=== PATIENT | female | born 1960 | race Native Hawaiian/Other Pacific Islander ===

== ENCOUNTER 2020-04-25 11:39 | Outpatient (CLI) | payer OTHER ==
[~2020-04-25 11:39] MED LIST: ALBUAER5 INH; ALBUTEROL0.083 % IN; CLON1TAB18 PO; FLUT0.05 NAS; LEVO0.0529 PO; LEVO500T PO; PRED10TA27 PO; TESSALON200 MG OR
== END 2020-04-25 21:01 | disposition home or self-care (01) ==
LOC: LABW 11:39
PROVIDERS: ATTEND Internal Medicine Gastroenterology
DX: B18.2 Chronic viral hepatitis C (principal)
CPT/HCPCS: 36415; 87522

== ENCOUNTER 2020-07-23 14:08 | Outpatient (CLI) | payer OTHER | END 2020-07-23 20:40 | disposition home or self-care (01) | LOC: RAD 14:08 | PROVIDERS: ATTEND Family Medicine | DX: R07.89 Other chest pain (principal); W19.XXXA Unspecified fall, initial encounter; R05 Cough ==

== ENCOUNTER 2020-08-06 20:10 | Emergency (ER) | payer OTHER ==
[~2020-08-06] VITALS: Ht 152.4 cm; Wt 52.6 kg
[2020-08-06 20:49] LABS: PLATELET COUNT 128 K/uL (152-353)
[2020-08-06 20:56] LABS: POTASSIUM 3.4 mmol/L (3.6-5.2)
[2020-08-06 21:08] LABS: PARTIAL THROMBOPLASTIN TIME 26.5 SECONDS (24.5-33.6)
[2020-08-06 21:47] VITALS: BP 134/62; TEMP 98.3
== END 2020-08-06 21:47 | disposition home or self-care (01) ==
LOC: ED 20:10
PROVIDERS: Hospitalist
DX: R04.0 Epistaxis (principal)
CPT/HCPCS: 36415; 80048; 85027; 85610; 85730; 99283

== ENCOUNTER 2020-08-10 10:21 | Emergency (ER) | payer OTHER ==
[~2020-08-10] VITALS: Ht 152.4 cm; Wt 52.6 kg
[2020-08-10 11:08] LABS: PLATELET COUNT 118 K/uL (152-353)
[2020-08-10 11:27] LABS: POTASSIUM 3.9 mmol/L (3.6-5.2)
[2020-08-10 11:59] LABS: PARTIAL THROMBOPLASTIN TIME 25.5 SECONDS (24.5-33.6)
[2020-08-10 13:00] VITALS: BP 114/67; TEMP 97.6
[2020-08-10] MEDS ORDERED: PANTOPRAZOLE 40MG TA PO (17:33)
[2020-08-10] MEDS ORDERED: HYDRTAB76 PO (17:34)
[2020-08-10] MEDS ORDERED: AMOXICILLIN250 M2 PO (17:35)
[2020-08-10] MEDS ORDERED: TRELEGY ELLIPTA1 AER INH (17:36)
[2020-08-10] MEDS ORDERED: DICLOFENAC SODIUM1 % TD (17:37)
[2020-08-10] MEDS ORDERED: LEXAPRO10 MG PO (17:39)
[2020-08-10] MEDS ORDERED: COLD/ALLERG1 PO (17:41)
[2020-08-10] MEDS ORDERED: LORATADINE D PO (17:42)
== END 2020-08-10 13:00 | disposition home or self-care (01) ==
LOC: ED 10:21
PROVIDERS: Emergency Medicine Emergency Medical Services
DX: R04.0 Epistaxis (principal); R22.0 Localized swelling, mass and lump, head
CPT/HCPCS: 36415; 80053; 85027; 85610; 85730; 96360; 99284; Q9963

== ENCOUNTER 2020-08-13 18:16 | Outpatient (CLI) | payer OTHER ==
[~2020-08-13 18:16] MED LIST changes: +AMOXICILLIN250 M2 PO; +COLD/ALLERG1 PO; +DICLOFENAC SODIUM1 % TD; +HYDRTAB76 PO; +LEXAPRO10 MG PO; +LORATADINE D PO; +PANTOPRAZOLE 40MG TA PO; +TRELEGY ELLIPTA1 AER INH
[2020-08-13 18:55] LABS: POTASSIUM 3.4 mmol/L (3.6-5.2)
== END 2020-08-13 22:31 | disposition home or self-care (01) ==
LOC: LABW 18:16
PROVIDERS: ATTEND Family Medicine
DX: Z01.818 Encounter for other preprocedural examination (principal); J39.2 Other diseases of pharynx; R04.0 Epistaxis
CPT/HCPCS: 36415; 80048; 93005

== ENCOUNTER 2020-11-26 15:10 | Outpatient (CLI) | payer OTHER ==
[2020-11-27 15:36] LABS: PLATELET COUNT 135 K/uL (152-353)
[2020-11-27 16:07] LABS: POTASSIUM 3.3 mmol/L (3.6-5.2)
== END 2020-11-26 22:19 | disposition home or self-care (01) ==
LOC: LABW 15:10
PROVIDERS: ATTEND Internal Medicine Gastroenterology
DX: K74.69 Other cirrhosis of liver (principal); B18.2 Chronic viral hepatitis C
CPT/HCPCS: 36415; 80053; 85027; 87522

== ENCOUNTER 2021-04-20 13:06 | Outpatient (CLI) | payer BC, OTHER | END 2021-04-20 19:02 | disposition home or self-care (01) | LOC: LAB 13:06 | PROVIDERS: ATTEND Family Medicine | DX: Z20.822 Contact with and (suspected) exposure to COVID-19 (principal) | CPT/HCPCS: 87635; G2023; U0003 ==

== ENCOUNTER 2022-02-02 16:54 | Outpatient (CLI) | payer BC ==
[2022-02-02 17:51] LABS: POTASSIUM 3.6 mmol/L (3.6-5.2)
[2022-02-02 17:53] LABS: PLATELET COUNT 173 K/uL (152-353)
== END 2022-02-02 19:17 | disposition home or self-care (01) ==
LOC: LABW 16:54
PROVIDERS: ATTEND Nurse Practitioner Family
DX: E80.1 Porphyria cutanea tarda (principal); D64.89 Other specified anemias; E83.118 Other hemochromatosis
CPT/HCPCS: 36415; 80053; 82728; 83540; 83550; 85027